=== PATIENT | female | born 1960 | race Caucasian/White ===

== ENCOUNTER → 2022-02-21 | Outpatient (CLI) | payer BC, OTHER | LOC: M RAD 09:14 | PROVIDERS: ATTEND Otolaryngology | DX: E04.2 Nontoxic multinodular goiter (principal) ==

== ENCOUNTER → 2024-05-06 | Outpatient (REF) | payer BC | LOC: M SFHCDERM 18:03 | PROVIDERS: ATTEND Physician Assistant | DX: L72.0 Epidermal cyst (principal) ==